=== PATIENT | male | born 1950 | race Caucasian/White ===

== ENCOUNTER 2016-08-29 05:56 | Inpatient (IN) | payer OTHER ==
[~2016-08-29] VITALS: Ht 182.9 cm; Wt 109.7 kg
[~2016-08-29 05:56] MED LIST: AMBIEN10 MG PO; AMITRIPTYLINE H10 MG PO; ASPIRIN81 M1 PO; CARDIZEM CD120 MG PO; CARTIA XT120 MG PO; CELECOXIB200 MG PO; CYMBALTA60 MG PO; DILAUDID4 MG PO; DURAGESIC50 MCG TD; DURAGESIC75 MCG TD; EXALGO16 MG PO; FERROUS SULFAT325 MG PO; FOLIC ACID1 MG PO; GLUCOPHAGE500 MG PO; HYDROCHLOROTHIA25 MG PO; HYDROMORPHONE HC4 MG PO; KADIAN30 MG PO; LIPITOR80 MG PO; LO-DOSE ASPIRIN81 M1 PO; LOPRESSOR50 MG PO; LUNESTA3 MG PO; LYRICA75 MG PO; METOPROLOL SUCC50 MG PO; NEURONTIN300 MG PO; NEURONTIN600 M1 PO; NIASPAN500 MG PO; OXAYDO5 MG PO; OXYCODONE-APAP1 EACH PO; OXYCONTIN15 MG PO; OXYCONTIN30 MG PO; PLAVIX75 MG PO; ROXICODONE5 MG PO; SENNA PLUS TAB1 EACH PO; SEROQUEL XR150 MG PO; SOMA350 MG PO; TIZANIDINE HCL4 MG PO; TOPROL XL50 MG PO; WELLBUTRIN SR100 MG PO; XARELTO20 MG PO
[2016-08-29 07:44] VITALS: BP 141/98
[2016-08-29 15:42] VITALS: BP 127/80
[2016-08-29 19:25] VITALS: BP 134/91
[2016-08-29 22:18] VITALS: BP 128/93
[2016-08-30] VITALS (8 sets, daily range): BP systolic 120–171; BP diastolic 77–117
[2016-08-30 05:10] LABS: HEMATOCRIT 41.7 % (38.0-50.0); MCV 84.6 FL (86-99)
[2016-08-31 04:03] VITALS: BP 126/78
[2016-08-31 08:00] VITALS: BP 131/72
[2016-08-31] MEDS ORDERED: SENNA PLUS TAB1 EACH PO (08:23)
[2016-08-31 08:55] LABS: HEMATOCRIT 40.3 % (38.0-50.0); MCV 83.8 FL (86-99)
[2016-08-31 12:11] VITALS: BP 133/87
[2016-08-31 15:37] VITALS: BP 133/81
== END 2016-08-31 15:56 | DRG 467 ==
LOC: 2SOUTH 05:56 → 3WEST 05:56 → 2SOUTH 11:21 → 3WEST 12:16
PROVIDERS: Orthopaedic Surgery; Physician Assistant
PROC: 0SWC0JC Revision of Synthetic Substitute in Right Knee Joint, Patellar Surface, Open Approach (ICD-10-PCS; principal; 2016-08-29)
DX: T84.022A Instability of internal right knee prosthesis, initial encounter (principal); F33.9 Major depressive disorder, recurrent, unspecified; G89.29 Other chronic pain; I48.0 Paroxysmal atrial fibrillation; I10 Essential (primary) hypertension; E78.5 Hyperlipidemia, unspecified; Z96.653 Presence of artificial knee joint, bilateral; F17.210 Nicotine dependence, cigarettes, uncomplicated; E78.00 Pure hypercholesterolemia, unspecified; E11.9 Type 2 diabetes mellitus without complications; I25.10 Atherosclerotic heart disease of native coronary artery without angina pectoris; E66.3 Overweight; F41.9 Anxiety disorder, unspecified; Z79.01 Long term (current) use of anticoagulants; Z68.35 Body mass index [BMI] 35.0-35.9, adult; Z86.73 Personal history of transient ischemic attack (TIA), and cerebral infarction without residual deficits; Z80.9 Family history of malignant neoplasm, unspecified; Z86.711 Personal history of pulmonary embolism
CPT/HCPCS: 85014; 85018; 97530 GP; J0131; J0690; J1170; J1885; J2250; J2405; J3010; J7030; S0020

== ENCOUNTER 2017-10-31 11:05 | Emergency (ER) | payer OTHER ==
[~2017-10-31] VITALS: Ht 182.9 cm; Wt 111.9 kg
[2017-10-31 11:18] VITALS: BP 131/89
== END 2017-10-31 12:25 | disposition home or self-care (01) ==
LOC: EME 11:05
DX: S93.401A Sprain of unspecified ligament of right ankle, initial encounter (principal); M19.071 Primary osteoarthritis, right ankle and foot; Z96.651 Presence of right artificial knee joint; X58.XXXA Exposure to other specified factors, initial encounter; I10 Essential (primary) hypertension; E78.5 Hyperlipidemia, unspecified; Z79.01 Long term (current) use of anticoagulants; Z86.73 Personal history of transient ischemic attack (TIA), and cerebral infarction without residual deficits; F17.200 Nicotine dependence, unspecified, uncomplicated
CPT/HCPCS: 73610; 99281; 99284